=== PATIENT | female | born 1950 | race Caucasian/White ===

== ENCOUNTER 2017-01-02 23:44 | Inpatient (IN) | payer BC ==
[~2017-01-02] VITALS: Ht 162.6 cm; Wt 98.0 kg
[2017-01-03 00:43] LABS: HEMATOCRIT 34.5 % (36.0-46.0); MCH 31.3 PG (29.0-34.0); MCHC 32.5 G/DL (30.0-36.0); MCV 96.4 FL (83-99); MEAN PLAT.VOLUME 11.1 uM^3 (9.5-12.4); PLATELET COUNT 135 K/uL (156-360); RBC DIS.WIDTH-CV 12.3 % (11.8-14.6); RBC DIS.WIDTH-SD 43.5 % (39-53); RED BLOOD COUNT 3.58 M/uL (3.80-5.20); WHITE BLOOD COUNT 14.6 K/uL (4.1-10.2)
[2017-01-03 00:52] LABS: CHLORIDE 109 mEq/L (99-109); POTASSIUM 5.7 mEq/L (3.7-5.4); SODIUM 137 mEq/L (136-147)
[2017-01-03 00:54] LABS: GLUCOSE 164 mg/dL (70-99)
[2017-01-03 00:55] LABS: ANION GAP 9 MEQ/L (2-14)
[2017-01-03 00:56] LABS: TOTAL BILIRUBIN 0.5 mg/dL (0.0-1.0)
[2017-01-03 00:58] LABS: ALKALINE PHOSPHATASE 59 IU/L (3-129); GFR ESTIMATE (CALCULATED) 23 mL/min/
[2017-01-03 00:59] LABS: UREA NITROGEN (BUN) 46 mg/dL (9-23)
[2017-01-03 04:11] LABS: PROTHROMBIN TIME 10.1 (9.2-11.2); PTT 23.8 (25-32)
[2017-01-03 04:17] LABS: DIRECT BILIRUBIN 0.2 mg/dL (0.0-0.3)
[2017-01-03 04:22] LABS: TROP-I INTERPRETATION NEGATIVE; TROPONIN-I 0.04 ng/mL (0.0-0.30)
[2017-01-03 05:37] LABS: ADD MIUA? YES; BILIRUBIN NEGATIVE; BLOOD LARGE; COLOR YELLOW ((YELLOW)); GLUCOSE (STRIP) NEGATIVE; KETONES NEGATIVE; LEUKOCYTES TRACE; NITRITE POSITIVE; PROTEIN (STRIP) 100; SPECIFIC GRAVITY 1.017 (1.000-1.030); UROBILINOGEN 0.2 MG/DL (0.2-1.0)
[2017-01-03 06:08] LABS: INTERNAL CONTROL VALID? YES
[2017-01-03 06:40] LABS: RED BLOOD CELLS 15-20 /HPF (0-5)
[2017-01-03 06:41] LABS: BACTERIA 4+ /HPF; C DIFF TOXIN NEGATIVE (NEGATIVE); CASTS NONE SEEN /LPF; CRYSTALS NONE SEEN; EPITHELIAL CELLS RARE /HPF; MUCUS NONE SEEN /LPF; UCUL ADDED? YES
[2017-01-03 06:44] LABS: PROBE CHECK PASS; SPECIMEN PROCESSING CONTROL PASS
[2017-01-03 09:50] VITALS: BP 154/67
[2017-01-03 16:00] VITALS: BP 129/68
[2017-01-03] MEDS ORDERED: LOVAZA1 GM PO (20:10)
[2017-01-03] MEDS ORDERED: TENORMIN50 MG PO (20:11)
[2017-01-03] MEDS ORDERED: NORVASC10 MG PO (20:12)
[2017-01-03] MEDS ORDERED: LIPITOR10 MG PO (20:13)
[2017-01-03 23:39] VITALS: BP 145/68
[2017-01-04 06:53] LABS: HEMATOCRIT 27.2 % (36.0-46.0); MCH 32.7 PG (29.0-34.0); MCHC 32.7 G/DL (30.0-36.0); PLATELET COUNT 112 K/uL (156-360); RBC DIS.WIDTH-CV 12.9 % (11.8-14.6); RBC DIS.WIDTH-SD 47.3 % (39-53); RED BLOOD COUNT 2.72 M/uL (3.80-5.20); WHITE BLOOD COUNT 7.8 K/uL (4.1-10.2)
[2017-01-04 07:55] LABS: ANION GAP 5 MEQ/L (2-14); CHLORIDE 116 MEQ/L (99-109); GFR ESTIMATE (CALCULATED) 27 mL/min/; GLUCOSE 94 mg/dL (70-99); POTASSIUM 5.4 MEQ/L (3.7-5.4); SAMPLE HEMOLYSIS CHECK 1; SAMPLE ICTERIC CHECK 0; SAMPLE LIPEMIA CHECK 0; SODIUM 142 MEQ/L (136-147); UREA NITROGEN (BUN) 31 mg/dL (9-23)
[2017-01-04 08:00] VITALS: BP 144/66
[2017-01-04 12:00] VITALS: BP 126/78
[2017-01-04] MEDS ORDERED: FLAGYL500 MG PO (14:39)
[2017-01-04] MEDS ORDERED: CIPRO500 MG PO (14:39)
[2017-01-04] MEDS ORDERED: CIPROFLOXACIN500 M1 PO (15:29)
== END 2017-01-04 15:36 | disposition home or self-care (01) | DRG 394 ==
LOC: EME 23:44 → EDOF 01-03 08:03 → 2EAST 01-03 08:03
PROVIDERS: Emergency Medicine; Hospitalist
DX: K55.9 Vascular disorder of intestine, unspecified (principal); K92.2 Gastrointestinal hemorrhage, unspecified; N39.0 Urinary tract infection, site not specified; E87.5 Hyperkalemia; E66.9 Obesity, unspecified; Z68.37 Body mass index [BMI] 37.0-37.9, adult; N17.9 Acute kidney failure, unspecified; I12.9 Hypertensive chronic kidney disease with stage 1 through stage 4 chronic kidney disease, or unspecified chronic kidney disease; N18.9 Chronic kidney disease, unspecified
CPT/HCPCS: 74176; 80048; 80053; 81003; 82248; 83605; 83630; 84484; 85027; 85610; 85730; 86900; 86901; 87040; 87077; 87086; 87186; 87493; 99281; 99285; C9113; J0744; J2270; J2405; J7030; S0028; S0030

== ENCOUNTER → 2018-04-03 | Outpatient (CLI) | payer BC ==
[~2018-04-03] MED LIST: CIPRO500 MG PO; CIPROFLOXACIN500 M1 PO; FLAGYL500 MG PO; GLUCOSAMINE1000 MG PO; LIPITOR10 MG PO; LOVAZA1 GM PO; MULTIVITAMIN1 EAC2 PO; NORVASC10 MG PO; PREDNISONE20 MG PO; TENORMIN50 MG PO; THERAGRAN1 TABLET PO; VITAMIN B-122000 MC1 PO; VITAMIN B-12250 MCG PO; VITAMIN D32000 UNI1 PO
== END | disposition home or self-care (01) ==
LOC: OPR 08:19 → EDSTATUS 09:00 → OPR 04-07 08:00
DX: R80.9 Proteinuria, unspecified (principal); E78.2 Mixed hyperlipidemia; I12.9 Hypertensive chronic kidney disease with stage 1 through stage 4 chronic kidney disease, or unspecified chronic kidney disease; N18.3 Chronic kidney disease, stage 3 (moderate); D63.1 Anemia in chronic kidney disease
CPT/HCPCS: 77012; 88305; 88313 90; 88346 90; 88348 90; J3010